=== PATIENT | female | born 1965 | race Caucasian/White ===

== ENCOUNTER 2019-04-09 10:17 | Outpatient (CLI) | payer OTHER, SELFPAY ==
--- NOTE | ~2019-04-09 | MM_ITS ---
EXAMINATION: MM screening mary BI w marin HISTORY: Screening mammogram TECHNIQUE: Bilateral rotated lateral cc views. Craniocaudal and mediolateral oblique 3-D tomosynthesi s images were obtained and synthetic 2-D images were generated. CAD analysis was submitted and interp reted. COMPARISON: 01/31/2017 bilateral digital screening mammogram 01/14/2016 diagnostic left digital mammogram 12/29/2015 bilateral digital screening mammogram BREAST PARENCHYMAL COMPOSITION: The breasts are heterogeneously dense, which may obscure small masses . FINDINGS: There is no evidence of suspicious mass, calcification, or architectural distortion to sugg est malignancy in either breast. There has been no suspicious interval change. IMPRESSION: 1. No mammographic evidence of malignancy. 2. Recommend routine screening mammography in one year. BI-RADS Category 2: Benign finding(s). Reviewed, dictated and finalized at location A. SECURITY ARCHITECT
== END 2019-04-09 10:18 | disposition home or self-care (01) ==
LOC: ANHIMG 10:18
PROVIDERS: PCP Family Medicine; Visit Provider Family Medicine
DX: Z12.31 Encounter for screening mammogram for malignant neoplasm of breast (principal)
CPT/HCPCS: 77063; 77067

== ENCOUNTER 2020-04-19 09:05 | Outpatient (CLI) | payer OTHER, SELFPAY | END 2020-04-19 09:06 | LOC: ANHCOVIDVC 09:05 | PROVIDERS: PCP Family Medicine | DX: Z23 Encounter for immunization (principal) | CPT/HCPCS: 0001A; 91300 ==

== ENCOUNTER 2020-05-10 09:03 | Outpatient (CLI) | payer OTHER, SELFPAY | END 2020-05-10 09:04 | disposition home or self-care (01) | LOC: ANHCOVIDVC 09:03 | PROVIDERS: PCP Family Medicine | DX: Z23 Encounter for immunization (principal) | CPT/HCPCS: 0002A; 91300 ==

== ENCOUNTER 2020-07-06 07:59 | Outpatient (CLI) | payer SELFPAY ==
--- NOTE | ~2020-07-06 | MM_ITS ---
EXAMINATION: MM screening mary BI w marin HISTORY: Screening TECHNIQUE: Craniocaudal and mediolateral oblique 3-D tomosynthesis images were obtained and synthetic 2-D images were generated. CAD analysis was submitted and interpreted. COMPARISON: Comparison to multiple prior studies sequentially, with oldest reviewed study dated 08/19. BREAST PARENCHYMAL COMPOSITION: The breasts are heterogeneously dense, which may obscure small masses . FINDINGS: There is no evidence of suspicious mass, calcification, or architectural distortion to sugg est malignancy in either breast. There has been no suspicious interval change. IMPRESSION: 1. No mammographic evidence of malignancy. 2. Recommend routine screening mammography in one year. BI-RADS Category 1: Negative Reviewed, dictated and finalized at location A.
== END 2020-07-06 08:00 | disposition home or self-care (01) ==
PROVIDERS: PCP Family Medicine; Visit Provider Family Medicine
DX: Z12.31 Encounter for screening mammogram for malignant neoplasm of breast (principal)
CPT/HCPCS: 77063; 77067

== ENCOUNTER 2021-08-01 07:50 | Outpatient (CLI) | payer OTHER, SELFPAY ==
--- NOTE | ~2021-08-01 | MM_ITS ---
EXAMINATION: MM screening mary BI w marin HISTORY: Screening TECHNIQUE: Craniocaudal and mediolateral oblique 3-D tomosynthesis images were obtained and synthetic 2-D images were generated. CAD analysis was submitted and interpreted. COMPARISON: Comparison to multiple prior studies sequentially, with oldest reviewed study dated 12/07. BREAST PARENCHYMAL COMPOSITION: The breasts are heterogenously dense, which may obscure small masses FINDINGS: There is no evidence of suspicious mass, calcification, or architectural distortion to sugg est malignancy in either breast. There has been no suspicious interval change. IMPRESSION: 1. No mammographic evidence of malignancy. 2. Recommend routine screening mammography in one year. BI-RADS Category 1: Negative Reviewed, dictated and finalized at location A.
== END 2021-08-01 07:51 | disposition home or self-care (01) ==
LOC: ANHIMG 07:52
PROVIDERS: PCP Family Medicine; Visit Provider Family Medicine
DX: Z12.31 Encounter for screening mammogram for malignant neoplasm of breast (principal)
CPT/HCPCS: 77063; 77067

== ENCOUNTER → 2022-06-30 14:27 | Outpatient (CLI) | payer SELFPAY ==
--- NOTE | ~2022-06-30 | XR_ITS ---
XR chest 2V 06/30/2022 14:53 Indication: Cough Procedure: 2 view chest Comparison: 04/21/2015 Findings: Heart size normal. No focal air space disease, pulmonary edema, pleural effusion or suspect ed pneumothorax. No acute osseous abnormality. Impression: 1: No acute cardiopulmonary disease. Reviewed, dictated and finalized at location B. Impression: 1: No acute cardiopulmonary disease.
== END ==
PROVIDERS: PCP Family Medicine; Visit Provider Nurse Practitioner Family
DX: R05.9 Cough, unspecified (principal)
CPT/HCPCS: 71046

== ENCOUNTER 2022-09-14 14:55 | Outpatient (CLI) | payer OTHER, SELFPAY ==
--- NOTE | ~2022-09-14 | MM_ITS ---
EXAMINATION: MM screening mary BI w marin HISTORY: Screening mammogram, family history of breast cancer in her sister. TECHNIQUE: Craniocaudal and mediolateral oblique 3-D tomosynthesis images were obtained and synthetic 2-D images were generated. CAD analysis was submitted and interpreted. COMPARISON: 08/01/2021, 07/06/2020, 04/09/2019 BREAST PARENCHYMAL COMPOSITION: The breasts are heterogeneously dense, which may obscure small masses . FINDINGS: No suspicious mass, calcification, or architectural distortion are identified in either reece ast to suggest malignancy. There has been no suspicious interval change. IMPRESSION: 1. No mammographic evidence of malignancy. 2. Recommend routine screening mammography in one year. BI-RADS Category 1: Negative Reviewed, dictated and finalized at location A.
== END 2022-09-14 14:56 | disposition home or self-care (01) ==
PROVIDERS: PCP Family Medicine; Visit Provider Family Medicine
DX: Z12.31 Encounter for screening mammogram for malignant neoplasm of breast (principal)
CPT/HCPCS: 77063; 77067

== ENCOUNTER → 2022-10-12 14:16 | Outpatient (CLI) | payer OTHER, SELFPAY ==
--- NOTE | ~2022-10-12 | US_ITS ---
EXAMINATION: US pelvic complete w TV DATE: 10/12/2022 14:56 INDICATION: Abdominal distention. Bloating. TECHNIQUE: Multiple transabdominal and transvaginal sonographic images of the pelvis were obtained. COMPARISON: Ultrasound 12/19/2018 FINDINGS: TRANSABDOMINAL ULTRASOUND: The uterus measures 5.4 x 2.8 x 3.7 cm. There is no free fluid in the pelvis. TRANSVAGINAL ULTRASOUND: The endometrial complex measures 3 mm in thickness. The ovaries are not visualized. IMPRESSION: 1. Normal uterus. Ovaries not visualized. Reviewed, dictated and finalized at location E.
--- NOTE | ~2022-10-12 | XR_ITS ---
EXAMINATION: XR cervical spine 4-5V DATE: 10/12/2022 14:53 INDICATION: Strain of muscle, fascia and tendon of neck. TECHNIQUE: 4 views of cervical spine including standing views were obtained. COMPARISON: None. FINDINGS: There is 6 degrees levocurvature of cervical spine. Vertebral body heights are normal. Ther e is mildly decreased disc height at C4-C5 and C5-C6 and moderately decreased disc height at C6-C7. T here is multilevel uncovertebral joint osteoarthritis, severe bilaterally at C6-C7. There is multilev el facet joint osteoarthritis, severe at multiple levels. There is likely ankylosis of the facet join ts at C2-C3. There is mild central canal stenosis at C6-C7. No prevertebral soft tissue swelling. IMPRESSION: 1. Moderate cervical spondylosis. Reviewed, dictated and finalized at location E.
== END ==
PROVIDERS: PCP Family Medicine; Visit Provider Family Medicine
DX: Z00.00 Encounter for general adult medical examination without abnormal findings (principal); R14.0 Abdominal distension (gaseous); Z78.0 Asymptomatic menopausal state; S16.1XXA Strain of muscle, fascia and tendon at neck level, initial encounter; X58.XXXA Exposure to other specified factors, initial encounter; M47.892 Other spondylosis, cervical region
CPT/HCPCS: 72050; 76830; 76856

== ENCOUNTER → 2022-10-24 09:12 | Outpatient (CLI) | payer OTHER, SELFPAY ==
--- NOTE | ~2022-10-24 | MR_ITS ---
MRI of the cervical spine Clinical History: Radiculopathy Technique: Axial T2-weighted and gradient images, and sagittal T1-weighted, T2-weighted, and STIR elkin ges were acquired. COMPARISON: 02/01/2017 Findings: No acute fracture identified. Minimal grade 1 anterolisthesis of C4 over C5 present. No vincenzo picious bone marrow signal abnormality seen. At C2-C3, there is no significant disc bulge or herniation. There is left facet arthropathy. No spina l canal stenosis or cord compression. Possible minimal right neural foraminal narrowing. Left neural foramen preserved. At C3-C4, there is no significant disc bulge or herniation. No spinal canal stenosis, cord compressio n, or neural foraminal narrowing. At C4-C5, there is no disc bulge or herniation. No spinal canal stenosis, cord compression, or neural foraminal narrowing. At C5-C6, there is minimal disc bulge. No spinal canal stenosis, cord compression, or neural foramina l narrowing. At C6-C7, there is degenerative disc narrowing with minimal disc bulge. No spinal canal stenosis, cor d compression, or right neural foraminal narrowing. There is probable mild left neural foraminal narr owing. No abnormal signal seen in the spinal cord. Paravertebral soft tissues are unremarkable. Impression: Mild degenerative spondylosis, as above. Reviewed, dictated and finalized at [facility]. Impression: Mild degenerative spondylosis, as above.
== END ==
PROVIDERS: PCP Family Medicine; Visit Provider Nurse Practitioner Family
DX: M47.22 Other spondylosis with radiculopathy, cervical region (principal)
CPT/HCPCS: 72141

== ENCOUNTER → 2022-10-24 09:21 | Outpatient (CLI) | payer OTHER, SELFPAY ==
--- NOTE | ~2022-10-24 | CT_ITS ---
Non-contrast CT scan of the Abdomen and Pelvis Clinical indication: Abdominal bloating Technique: 2.5 mm axial scans were obtained through the abdomen and pelvis without intravenous or or al contrast. Dose reduction technique was used on this scan by utilizing automated exposure control a nd iterative reconstruction technique. The dose-length product (DLP) was 359.95 mGy-cm. COMPARISON: 03/24/2012 Findings: Images through the lung bases reveal left basilar scarring or atelectasis. There is no evidence of renal or ureteral calculi. The kidneys and the ureters are nondilated. The liver, spleen, pancreas, gallbladder, and adrenals appear normal. There is no aortic aneurysm. There is no evidence of bowel obstruction. No evidence for appendicitis. Images through the pelvis were performed. There is no evidence of ascites or lymphadenopathy. Urinary bladder unremarkable. No pelvic mass seen. Impression: No significant abnormality seen. Reviewed, dictated and finalized at [facility]. Impression: No significant abnormality seen.
== END ==
PROVIDERS: PCP Family Medicine; Visit Provider Family Medicine
DX: R14.0 Abdominal distension (gaseous) (principal)
CPT/HCPCS: 74176

== ENCOUNTER → 2022-11-15 07:51 | Outpatient (CLI) | payer OTHER, SELFPAY ==
--- NOTE | ~2022-11-15 | US_ITS ---
US soft tissue head and neck 11/15/2022 08:08 Indication: Left-sided neck pain and swelling Procedure: High-resolution Limited ultrasound of the neck Comparison: No prior studies for comparison. Findings: In the lower posterior neck there is a normal 1.1 cm lymph node with echogenic hilum. Later al anterior left neck there is a 1.2 cm normal lymph node with echogenic hilum. No suspicious masses to suggest malignancy. Impression: 1: Normal left cervical lymph nodes. No suspicious masses are identified. Reviewed, dictated and finalized at location B. Impression: 1: Normal left cervical lymph nodes. No suspicious masses are identified.
== END ==
PROVIDERS: PCP Nurse Practitioner Family; Visit Provider Nurse Practitioner Family
DX: M54.2 Cervicalgia (principal); R22.1 Localized swelling, mass and lump, neck
CPT/HCPCS: 76536

== ENCOUNTER → 2023-03-01 09:47 | Outpatient (CLI) | payer SELFPAY ==
--- NOTE | ~2023-03-01 | XR_ITS ---
EXAMINATION: XR chest 2V 03/01/2023 10:07 INDICATION: Cough PROCEDURE: 2 view chest COMPARISON: 06/30/2022 FINDINGS: The lungs are clear. The cardiomediastinal silhouette is within normal limits. There are no pleural effusions. There is no pneumothorax suspected. IMPRESSION: 1: NO ACUTE CARDIOPULMONARY DISEASE. Reviewed, dictated and finalized at location L. [employer]
== END ==
PROVIDERS: PCP Family Medicine; Visit Provider Physician Assistant
DX: R05.9 Cough, unspecified (principal)
CPT/HCPCS: 71046

== ENCOUNTER 2023-10-25 07:41 | Outpatient (CLI) | payer OTHER, SELFPAY ==
--- NOTE | ~2023-10-25 | MM_ITS ---
EXAMINATION: MM screening mary BI w marin HISTORY: Screening mammogram, family history of breast cancer in her sister. TECHNIQUE: Craniocaudal and mediolateral oblique 3-D tomosynthesis images were obtained and synthetic 2-D images were generated. CAD analysis was submitted and interpreted. COMPARISON: 09/14/2022, 08/01/2021, 07/06/2020, 04/09/2019 BREAST PARENCHYMAL COMPOSITION:Dense: The breasts are heterogeneously dense, which may obscure small masses. FINDINGS: There is a more conspicuous 4 mm mass in the central right breast. No parenchymal abnormali ty of the left breast seen. No suspicious microcalcification either breast. IMPRESSION: More conspicuous 4 mm central right breast mass. Spot compression views, and possibly ultrasound, ar e recommended for further evaluation. BI-RADS Category 0: Incomplete: Needs additional imaging evaluation. Reviewed, dictated and finalized at location . IMPRESSION: More conspicuous 4 mm central right breast mass. Spot compression views, and p ossibly ultrasound, are recommended for further evaluation. BI-RADS Category 0: Incomplete: Needs additional imaging evaluation.
== END 2023-10-25 07:42 | disposition home or self-care (01) ==
PROVIDERS: PCP Family Medicine; Visit Provider Family Medicine
DX: Z12.31 Encounter for screening mammogram for malignant neoplasm of breast (principal); N63.10 Unspecified lump in the right breast, unspecified quadrant
CPT/HCPCS: 77063; 77067

== ENCOUNTER 2023-11-15 13:50 | Outpatient (CLI) | payer OTHER, SELFPAY ==
--- NOTE | ~2023-11-15 | MMUS_ITS ---
EXAMINATION: MM diagnostic amry RT w marin, US breast RT complete HISTORY: Follow-up right breast mass TECHNIQUE: Additional 3-D tomosynthesis images of the right breast were performed and synthetic 2-D i mages were generated. CAD analysis was submitted and interpreted. High resolution complete right deisy st ultrasound was performed. COMPARISON: Comparison to multiple prior studies sequentially, with oldest reviewed study dated 01/06. BREAST PARENCHYMAL COMPOSITION: Dense: The breasts are heterogeneously dense, which may obscure small masses FINDINGS: MAMMOGRAPHIC FINDINGS: There is a small mass in the upper inner quadrant of the right breast, middle third which is radioluc ent centrally. ULTRASOUND: Complete US of all 4 quadrants of the right breast/s and retroareolar region was reviewed. At 2:00, 3 cm from the nipple there is a 7 mm cyst corresponding to the mammographic finding. No suspicious mas ses in the right breast to suggest malignancy. IMPRESSION: 1. No evidence for malignancy in the right breast. Benign finding. 2. Routine yearly screening mammogram and regular clinical breast examination are recommended. BI-RADS Category 2: Benign finding(s). Reviewed, dictated and finalized at location B. IMPRESSION: 1. No evidence for malignancy in the right breast. Benign finding. 2. Routine yearly screening mammogram and regular clinical breast examination a re recommended. BI-RADS Category 2: Benign finding(s).
== END 2023-11-15 13:51 | disposition home or self-care (01) ==
PROVIDERS: PCP Family Medicine; Visit Provider Family Medicine
DX: R92.8 Other abnormal and inconclusive findings on diagnostic imaging of breast (principal)
CPT/HCPCS: 76641; 77061; 77065; G0279

== ENCOUNTER 2023-11-24 08:57 | Emergency (ER) | payer OTHER, SELFPAY ==
--- NOTE | ~2023-11-24 | CT_ITS ---
CT abd pelvis lumbar w con Ordering provider: Angelique Montero MD History: 58 years Female with . R lower back/flank pain . Comparison: October 24, 2022 Technique: CT abdomen and pelvis with IV and without oral contrast. Automated exposure control and it erative reconstruction technique were employed. The dose-length product was 349.10 mGy-cm. 100 mL Omn ipaque 350 was given IV. Findings: VISUALIZED LOWER CHEST: Dependent atelectatic changes. Subsegmental atelectasis in the left lung base . UPPER ABDOMINAL ORGANS: Liver: Hepatomegaly. Tiny cyst in the segment #6 measuring 6 mm. Gallbladder: Distended with no stones. Spleen: Normal. Stomach/duodenum: Slightly thickened wall of the stomach. Pancreas: Normal. Adrenals: Normal. Kidneys: Tiny cyst in the right kidney lower pole. PELVIC ORGANS: The bladder is normal. Retroverted uterus BOWEL AND MESENTERY: Colon: Mild sigmoid diverticulosis without diverticulitis. Fecal material is loaded in the colon. No evidence of appendicitis. Small Bowel: Normal. No obstruction. Peritoneum/mesentery: No free air or free fluid. No mesenteric lymphadenopathy. RETROPERITONEUM: Normal aorta. No retroperitoneal lymphadenopathy. Superficial soft tissues: The superficial soft tissues are normal. IMPRESSION: Hepatomegaly. Tiny cyst in the liver. Distended gallbladder with no definite stones. Constipation No evidence of appendicitis, diverticulitis or intestinal obstruction. No renal stones. CT abd pelvis lumbar w con Ordering provider: Angelique oMntero MD History: 58 years Female with . R lower back/flank pain . Comparison: None. Technique: CT lumbar spine without contrast. Automated exposure control and iterative reconstruction technique were employed. The dose-length product was 349.10 mGy-cm. FINDINGS: VERTEBRAE: Normal height and alignment. No subluxation or visible acute fracture. DISC SPACES: Well maintained. T12-L1: No stenosis. L1-L2: No stenosis. L2-L3: No stenosis. L3-L4: No stenosis. A right posterolateral protrusion bilateral narrowing of the foramina with root compression more on t he right side. L4-L5: No stenosis. Diffuse disc bulge with L5-S1: No stenosis. Bilateral facet joint disease. Bilateral sacroiliitis. PARASPINOUS SOFT TISSUES: Normal aorta. IMPRESSION: No acute osseous abnormality. Diffuse disc bulge with right posterolateral protrusion associated with the right nerve root compress ion at the level of L4-L5. Reviewed, dictated and finalized at location A. IMPRESSION: Hepatomegaly. Tiny cyst in the liver. Distended gallbladder with no definite stones. Constipation No evidence of appendicitis, diverticulitis or intestinal obstruction. No renal stones. CT abd pelvis lumbar w con Ordering provider: Angelique Montero MD History: 58 years Female with . R lower back/flank pain . Comparison: None. Technique: CT lumbar spine without contrast. Automated exposure control and it erative reconstruction technique were employed. The dose-length product was 349 .10 mGy-cm. FINDINGS: VERTEBRAE: Normal height and alignment. No subluxation or visible acute fractur e. DISC SPACES: Well maintained. T12-L1: No stenosis. L1-L2: No stenosis. L2-L3: No stenosis. L3-L4: No stenosis. A right posterolateral protrusion bilateral narrowing of the foramina with root compression more on the right side. L4-L5: No stenosis. Diffuse disc bulge with L5-S1: No stenosis. Bila
[2023-11-24 09:01] VITALS: BP 114/70; PULSE 72; RESP 14; TEMP 36.8; O2SAT 100
[2023-11-24 09:11] VITALS: BP 122/76; PULSE 72; RESP 17; O2SAT 100
[2023-11-24 09:54] LABS: Add Urine Microscopic? YES; Appearance Urine Clear (Clear); Bacteria Urine None Seen /hpf; Bilirubin Urine Negative (Negative); Blood Urine Negative (Negative); Color Urine Yellow (Yellow); Glucose Urine UA Negative (Negative); Ketones Urine Negative (Negative); Leukocyte Esterase Ur 1+ LEU/UL (Negative); Need Manual Microscopic Reviewed; Nitrate Urine Negative (Negative); Non Pathogenic Casts 0-2; Protein Urine Negative (Negative); RBC Urine 0-2 /hpf (0-2); Specific Grav Ur 1.013 (1.001-1.035); Squamous Epithelial Cell Urine None Seen /hpf (Few); Urobilinogen Urine 0.2 mg/dL (<2.0); WBC Urine 0-5 /hpf (0-3)
--- NOTE | 2023-11-24 10:42 | ED.BACK ---
HPI - Back Pain/Injury General Chief Complaint: Back Pain/Injury Stated Complaint: back pain Time Seen by Provider: 11/24/23 10:01 History of Present Illness HPI Narrative: 58-year-old female presenting with lower back pain. Patient states that she was doing physical activity this week including power washing and she noticed some soreness earlier this week. Last night a soreness worsened to the point that she felt she needed to lean against her to walk. She took some naproxen last night and this morning with minimal relief. The pain is worsened with lying down for too long and certain movements. Associated with stiffness. No numbness or weakness. No saddle anesthesia bladder bowel incontinence. No fevers. No trauma. No dysuria or hematuria. No abdominal pain. Related Data Home Medications Medication Instructions Recorded Confirmed L.acidop,casei,lactis,rham-B.lact,ninfa 1 cap PO DAILY 11/20/23 11/20/23 625 mg (10 billion cell) capsule (Advanced Probiotic) naproxen 500 mg tablet 500 mg PO PRN PRN Pain 11/20/23 11/20/23 Allergies Allergy/AdvReac Type Severity Reaction Status Date / Time codeine [Guaifen-C] Allergy Intermediate Palpitation Verified 11/24/23 09:14 s guaifenesin [Entex T] Allergy Intermediate Palpitation Verified 11/24/23 09:14 s pseudoephedrine [Entex T] Allergy Intermediate Palpitation Verified 11/24/23 09:14 s Review of Systems Review of Systems: All systems reviewed & are unremarkable except as noted in HPI and below PMFSH Past Medical History Medical History Acne Adult general medical exam Breast Cancer Screening Cervical spondylosis Cystic acne Diverticulosis Diverticulosis DUB (dysfunctional uterine bleeding) (~12/2014) HPV in female Insomnia Perimenopause Temporomandibular joint disorders, unspecified Family History Family History Father Diabetes mellitus Family history of coronary artery disease Grandparent Diabetes mellitus Family history of malignant neoplasm of breast, Onset Age: 85 Mother Hypertension Sibling Family history of dementia Family history of malignant neoplasm of breast in first degree relative Other Family history of cardiovascular disease Social History Social History Smoking status: Never smoker Alcohol intake: current Alcohol use details: occasionally Substance use: never Substance use type: does not use Do You Feel Safe in your Home?: Yes Lack of Transportation: No Lack of Food: Never True Current Housing: I Have Housing Concerned About Future Housing: No Difficulty Paying Gas/Electric Bills: No Difficulty Paying for Meds: No Currently Unemployed: No Education: Bachelor's Degree Difficulty w/ Childcare or Family Care: No Living arrangements: with family Spiritual care concerns: No Exam Narrative: GENERAL: Well-appearing, well-nourished, and in no acute distress. HEAD: Normocephalic, atraumatic. EYES: PERRLA and EOMI. ENT: Grossly unremarkable NECK: Supple. CHEST: No respiratory distress. HEART: Regular rate and rhythm ABDOMEN: Soft, nontender, nondistended EXTREMITIES: Normal range of motion. BACK: no midline tenderness of lumbar spine or paraspinal musculature; mild tenderness of R buttock SKIN: Warm, dry, no rash. NEURO: No focal deficits. Alert and oriented x3. PSYCH: Normal mood and affect. Course Vital Signs Vital signs: Vital Signs Temperature 98.2 F 11/24/23 09:01 Pulse Rate 72 11/24/23 09:01 Respiratory Rate 14 11/24/23 09:01 Blood Pressure 114/70 11/24/23 09:01 Pulse Oximetry 100 11/24/23 09:01 Oxygen Delivery Room Air 11/24/23 09:01 Temperature 98.2 F 11/24/23 09:01 Pulse Rate 67 11/24/23 16:42 Respiratory Rate 17 11/24/23 16:42 Blood
[2023-11-24] MEDS: KETOROLAC 30 MG/ML VIAL (*BKC) IM (10:50)
[2023-11-24] MEDS: diazePAM (*CRX) 2 MG TABLET PO (10:51)
[2023-11-24 10:54] VITALS: BP 114/74; PULSE 69; RESP 17; O2SAT 99
[2023-11-24 13:51] VITALS: BP 122/82; PULSE 70; RESP 17; O2SAT 96
[2023-11-24] MEDS: SODIUM CHLORIDE 0.9% IV 1,000 ML 999 ML IV CONT (14:04)
[2023-11-24 14:05] LABS: Basophils Absolute Auto 0.1 K/mm3 (0.0-0.1); Basophils Percent Auto 0.8 % (0.2-1.2); Eosinophils Absolute Auto 0.2 K/mm3 (0-0.3); Eosinophils Percent Auto 2.5 % (0-4.4); Hematocrit 41.3 % (37.0-47.0); Hemoglobin 13.6 g/dL (12.0-15.0); Immature Granulocyte Absolute 0.02 K/mm3 (0.00-0.031); Immature Granulocyte Percent A 0.3 % (0-0.5); Lymphocytes Absolute Auto 1.58 K/mm3 (0.9-3.2); Mean Corpuscular HGB Conc 32.9 g/dl (32-36); Mean Corpuscular Hemoglobin 30.9 pg (26-34); Mean Corpuscular Volume 93.9 fl (80-100); Mean Platelet Volume 10.2 fl (7.4-10.4); Monocytes Absolute Auto 0.3 K/mm3 (0.1-0.6); Monocytes Percent Auto 4.8 % (2.6-8.5); Neutrophils Percent Auto 65.6 % (45.5-73.1); Platelet Count Result 216 k/mm3 (150-375); Red Cell Distribution Width 12.5 % (11.5-14.5); White Blood Count 6.1 K/mm3 (4.5-10.0)
[2023-11-24 14:21] LABS: Alanine Aminotransferase 21 U/L (6-35); Albumin Level 4.4 g/dL (3.5-5.1); Alkaline Phosphatase 74 U/L (38-126); Anion Gap 5 mmol/L (4-12); Aspartate Amino Transferase 27 U/L (14-36); Bilirubin,Total 1.2 mg/dL (0.2-1.3); Blood Urea Nitrogen 23 mg/dL (7-17); Calcium 9.3 mg/dL (8.4-10.2); Carbon Dioxide 31 mmol/L (22-30); Chloride 103 mmol/L (98-107); Creatine Kinase 99 U/L (30-135); Estimated CRCL calculation 61 ml/min; Estimated Glomerular Filt Rate > 60; Glucose 89 mg/dL (65-110); Lipase 54 U/L (23-300); Potassium 4.2 mmol/L (3.4-5.0); Sodium 139 mmol/L (137-145)
[2023-11-24 16:42] VITALS: BP 110/76; PULSE 67; RESP 17; O2SAT 98
[2023-11-24 17:25] VITALS: BP 117/69; PULSE 65; RESP 18; O2SAT 99
== END 2023-11-24 17:27 | disposition home or self-care (01) ==
PROVIDERS: Emergency Medicine; Emergency Provider Emergency Medicine; PCP Family Medicine
DX: M51.16 Intervertebral disc disorders with radiculopathy, lumbar region (principal)
CPT/HCPCS: 36415; 72132; 74177; 80053; 81001; 82550; 83690; 85025; 87086; 96360; 96372; 99284; A9270; J1885; J7030; Q9967